=== PATIENT | female | born 1970 ===

== ENCOUNTER 2018-04-15 14:30 | Inpatient (IN) | payer OTHER ==
[~2018-04-15] VITALS: Ht 149.9 cm; Wt 52.2 kg
[2018-04-25] MEDS ORDERED: CODE1TAB37 PO (13:36)
== END 2018-04-25 16:44 | disposition home or self-care (01) | DRG 742 ==
LOC: EDSTATUS 14:30 → O/R 04-22 06:00 → SURG 04-22 09:15 → OB/GYN 04-22 13:44 → CIR.AMB 04-22 14:30 → SURG 04-22 14:30 → EDSTATUS 04-22 14:30 → OB/GYN 04-25 16:44
PROVIDERS: Obstetrics & Gynecology
PROC: 0UQF4ZZ Repair Cul-de-sac, Percutaneous Endoscopic Approach (ICD-10-PCS; 2018-04-22)
PROC: 0USG4ZZ Reposition Vagina, Percutaneous Endoscopic Approach (ICD-10-PCS; 2018-04-22)
PROC: 0TJB8ZZ Inspection of Bladder, Via Natural or Artificial Opening Endoscopic (ICD-10-PCS; 2018-04-22)
PROC: 0UT9FZZ Resection of Uterus, Via Natural or Artificial Opening With Percutaneous Endoscopic Assistance (ICD-10-PCS; principal; 2018-04-22 09:15)
PROC: 30233N1 Transfusion of Nonautologous Red Blood Cells into Peripheral Vein, Percutaneous Approach (ICD-10-PCS; 2018-04-23)
DX: D25.1 Intramural leiomyoma of uterus (principal); D62 Acute posthemorrhagic anemia; N92.0 Excessive and frequent menstruation with regular cycle; N81.11 Cystocele, midline; N81.5 Vaginal enterocele; N72 Inflammatory disease of cervix uteri; N80.0 Endometriosis of uterus

== ENCOUNTER 2018-04-16 14:44 | Outpatient (CLI) | payer OTHER | END 2018-04-16 14:54 | disposition home or self-care (01) | LOC: EKG 14:44 | DX: R07.89 Other chest pain (principal) ==